=== PATIENT | female | born 1980 ===

== ENCOUNTER 2018-04-12 10:14 | Day surgery (SDC) | payer OTHER ==
[2017-12-10 08:28] VITALS: BMI 29.8
[2018-04-12] MEDS ORDERED: Propofol 10 mg/ml Inj (20 ML) ONE ×2 (12:06→12:16)
[2018-04-12] MEDS ORDERED: Lidocaine Hydrochloride 5 ML INJ ONE (12:09)
[2018-04-12 13:20] VITALS: TEMP 97
[2018-04-12 14:29] LABS: BASO % 0.2 % (0.0-2.0); EOS % 0.5 % (0.0-4.0); LYMPH # 2.6 K/uL (1.0-4.3); LYMPH % 28.5 % (20.0-40.0); MEAN CELL VOLUME 87.8 fL (81.0-99.0); MEAN CORPUSCULAR HEMOGLOBIN 30.7 pg (27.0-31.0); MEAN PLATELET VOLUME 7.8 fL (7.2-11.7); MONO # 0.6 K/uL (0.0-0.8); MONO % 6.1 % (0.0-10.0); NEUT # 5.9 K/uL (1.8-7.0); NEUT % 64.7 % (50.0-75.0); NRBC % 0.1 % (0.0-2.0); RBC 4.58 Mil/uL (3.80-5.20); RED CELL DISTRIBUTION WIDTH 12.8 % (11.5-14.5); WHITE BLOOD COUNT 9.1 K/uL (4.8-10.8)
[2018-04-12 14:41] LABS: ALB/GLOB RATIO 1.1 (1.0-2.1); ALBUMIN 4.2 g/dL (3.5-5.0); ALT/SGPT 26 U/L (9-52); AST/SGOT 23 U/L (14-36); BLOOD UREA NITROGEN 6 mg/dL (7-17); CALCIUM 9.2 mg/dl (8.6-10.4); GFR AFRICAN-AMERICAN > 60; GFR NON-AFRICAN AMERICAN > 60
[2018-04-12 14:48] VITALS: BP 140/85; PULSE 88; RESP 18; O2SAT 100
== END 2018-04-12 14:45 | disposition home or self-care (01) ==
LOC: C.ENDO 10:14
PROVIDERS: ATTEND Internal Medicine
DX: C20 Malignant neoplasm of rectum (principal); K64.8 Other hemorrhoids
CPT/HCPCS: 36415; 45380; 80053; 82378; 84703; 85025; 88305; J2704

== ENCOUNTER 2018-04-21 09:36 | Day surgery (SDC) | payer OTHER ==
[2017-12-10 08:28] VITALS: BMI 29.8
[2018-04-21 10:29] VITALS: O2SAT 100
[2018-04-21] MEDS ORDERED: Lactated Ringer's 500 ML IV SCH (12:15)
[2018-04-21] MEDS ORDERED: Propofol 10 mg/ml Inj (20 ML) ONE (12:23)
[2018-04-21] MEDS ORDERED: Lidocaine Hydrochloride 5 ML INJ ONE (12:30)
[2018-04-21 13:51] VITALS: TEMP 98
[2018-04-21 14:34] VITALS: BP 128/82; PULSE 103; RESP 20
== END 2018-04-21 14:20 | disposition home or self-care (01) ==
LOC: C.ENDO 09:36
PROVIDERS: ATTEND Internal Medicine
DX: C20 Malignant neoplasm of rectum (principal); K59.09 Other constipation; K44.9 Diaphragmatic hernia without obstruction or gangrene; K21.0 Gastro-esophageal reflux disease with esophagitis
CPT/HCPCS: 45331; 45335; 45342; 84703; 88305; J2704; J7120